=== PATIENT | female | born 1960 | race Caucasian/White ===

== ENCOUNTER 2021-01-24 14:33 | Emergency (ER) | payer OTHER, MEDICARE ==
[~2021-01-24] VITALS: Ht 165.1 cm; Wt 65.8 kg
[2021-01-24] MEDS ORDERED: DILAUDID2 MG PO (18:13)
[2021-01-24] MEDS ORDERED: ONDANSETRON ODT8 MG PO (18:13)
== END 2021-01-24 18:25 | disposition home or self-care (01) ==
LOC: ED 14:33
DX: S42.201A Unspecified fracture of upper end of right humerus, initial encounter for closed fracture (principal); V86.99XA Unspecified occupant of other special all-terrain or other off-road motor vehicle injured in nontraffic accident, initial encounter; Z88.0 Allergy status to penicillin; Z88.2 Allergy status to sulfonamides
CPT/HCPCS: 73020; 73030; 96374; 96376; 99284-25; J0735; J2001; J2250; J3010; J7030

== ENCOUNTER 2021-04-11 17:29 | Emergency (ER) | payer MEDICARE ==
[~2021-04-11] VITALS: Ht 165.1 cm; Wt 63.0 kg
[~2021-04-11 17:29] MED LIST: DILAUDID2 MG PO; ONDANSETRON ODT8 MG PO
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
[2021-04-11] MEDS ORDERED: MECLIZINE HCL25 MG PO (17:52)
== END 2021-04-11 20:10 | disposition home or self-care (01) ==
LOC: ED 17:29
DX: U07.1 COVID-19 (principal); J45.909 Unspecified asthma, uncomplicated; Z88.0 Allergy status to penicillin; Z88.2 Allergy status to sulfonamides; Z79.899 Other long term (current) drug therapy
CPT/HCPCS: 71045; 80053; 81001; 83605; 85025; 87040; 99284-25; C9803; U0003